=== PATIENT | male | born 1970 | race Two or more races ===

== ENCOUNTER 2021-05-13 13:19 | Emergency (ER) | payer OTHER ==
[~2021-05-13] VITALS: Ht 175.3 cm; Wt 75.0 kg
[2021-05-13 15:00] VITALS: BP 131/92
[2021-05-18 04:09] LABS: BARBITURATE SCREEN Negative ug/mL (Cutoff:0.1); BENZODIAZEPINE SCREEN Negative ng/mL (Cutoff:20); OPIATES SCREEN Negative ng/mL (Cutoff:5); PHENCYCLIDINE SCREEN Negative ng/mL (Cutoff:8)
== END 2021-05-13 15:34 | disposition home or self-care (01) ==
LOC: LAB 13:19 → ER 13:19 → EDSTATUS 14:58 → ER 15:07
DX: F19.10 Other psychoactive substance abuse, uncomplicated (principal)
CPT/HCPCS: 80307; 99281